=== PATIENT | female | born 1995 | race African-American/Black ===

== ENCOUNTER 2025-09-30 10:06 | Outpatient (AMB) | payer OTHER, SELFPAY ==
--- NOTE | 2025-09-30 09:06 | A.OFFPC_ITS ---
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 Administrator Required: No Accompanied by: Self / Same As Patient Allergies No Known Allergies Allergy (Verified 09/30/25 10:02) Medication List - Last Reconciled 09/30/25 by Minal Santiago MD amlodipine 2.5 mg PO DAILY diclofenac sodium 75 mg PO Q12H PRN norethindrone-e.estradiol-iron 1.5 mg-30 mcg ()/75 mg (7) ( FE .04/25 ()) 1 tab PO DAILY Tobacco use date assessed: 09/30/25 Dental Screening Dental Screen Date: 09/30/25 Did you have a dental visit in the last 12 months?: Yes Did you have a dental problem in the last 6 months where you did not have access to dental care?: No Was dental information given to patient?: Patient has dentist HPI HPI Comments History of Present Illness Details The patient is a 29-year-old female presenting for a physical examination and reestablishing care. Patient is primarily concerned with increased frequency and intensity of headaches and right knee discomfort. Right foot injury: Traumatic event in February; resolved. Cleared by orthopedics, no pain. Right big toe injury: Tubing accident in May; resolved. Cleared by orthopedics, no pain. Right knee discomfort: Ongoing discomfort. Awaiting physical therapy. Headaches: Increased frequency and intensity since August. Bilateral tight sensation, no visual changes. No relief with tylenol. Also notes increased work stress. Hypertension: Managed on amlodipine Health Maintenance due for OBGYN Review of Systems - Gen: NAD - Card: no chest pain - Pulm: no sob - Abd: no abdominal pain -Neurologic: Reports increased frequency and intensity of headaches, denies vision changes. Physical Exam General: NAD Chest: CTABL. Card: normal s1, s2, soft murmur across precordium Abd: SNTND, +BS Extremities: no edema Neuro: AOX3 Assessment and Plan 1. Right knee discomfort - Physical therapy planned. 2. Headaches - CT scan ordered for further investigat ion - monitor bp during these episodes - limited use of fioricet for severe epi sodes 3. Hypertension - Continue amlodipine regimen. Discussion Notes We also reviewed the increased frequency and intensity of the patient's headaches and decided on a CT scan to rule out significant conditions, given the change in headache pattern. Regarding her hypertension, we confirmed the continuation of her current regimen with amlodipine. Follow-up plans were scheduled for four months. Patient Instructions - Attend physical therapy for knee. - Complete the CT scan for headache eval uation. - Continue to take amlodipine as prescri bed. - Follow up with it security administrator. - Return for follow-up in 4 months or so edith if needed. 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 1. Little interest or pleasure in doing things: not at all 2. Feeling down, depressed, or hopeless: not at all 3. Trouble falling or staying asleep, or sleeping too much: not at all 4. Feeling tired or having little energy: not at all 5. Poor appetite or overeating: not at all 6. Feeling bad about yourself - or that you are a failure or have let yourself or your family down: not at all 7. Trouble concentrating on things, such as reading the newspaper or watching television: not at all 8. Moving or speaking so slowly that other people could have noticed. Or the opposite - being so fidgety or restless that you have been moving around a lot more than usual: not at all 9. Thoughts that you would be better off or of hurting yourself in some way: not at all Total score: 0 Depression Screening Interpretation: Negative Depression Screening Done: Yes 89725 - PHQ-9 Billing: Yes Source: Developed by Drs. Saul Lazo, Vangie NelsonJeronimo and colleagues, with an educational blake from [employer]. Thrive Questionnaire Date Thrive assessed: 09/30/25 I am a: Patient What is your living situation today?: I have a steady place to live Within the past 12 months, did the food you bought not last and you didn't have the money to get more?: Never true Within the past 12 months, did you worry whether your food would run out before you got money to buy more?: Never true Do you have trouble paying for medicines?: No Do you have trouble getting transportation to medical appointments?: No Do you have trouble paying your heating and electricity bill?: No Do you have trouble taking care of your child, family member or friend?: No Do you have trouble with day-to-day activities such as bathing, preparing meals, shopping, managing finances, etc.?: No Are you currently unemployed and looking for a job?: No Are you interested in more education?: No Please select the resources that you would like help with: None THRIVE Score: 0 AUDIT C Alcohol Use Questionnaire (AUDIT-C) 1. How often do you have a drink containing alcohol?: Monthly or less 2. How many drinks containing alcohol do you have on a typical day when you are drinking?: 1 or 2 3. How often do you have six or more drinks on one occasion?: Never Total Score: 1 SOLEDAD-7 AMB Questionnaire SOLEDAD-7 Date SOLEDAD - 7 assessed: 09/30/25 Feeling nervous, anxious, or on edge: 0 = Not at all Not being able to stop or control worryin = Not at all Worrying too much about different things: 0 = Not at all Trouble relaxin = Not at all Being so restless that it is hard to sit still: 0 = Not at all Becoming easily annoyed or irritable: 0 = Not at all Feeling afraid as if something awful might happen: 0 = Not at all Total SOLEDAD-7 score (0-4 normal; 5-9 mild; 10-14 moderate; 15-21 severe): 0 Source: Developed by Drs. Saul Lazo, Vangie Nelson, Jeronimo Gillespie and colleagues, with an educational blake from [employer]. Physical exam (Primary Care) Vital Signs: Last Vital Signs Temp 97.9 F 09/30/25 10:00 Pulse 64 09/30/25 10:00 Resp 16 09/30/25 10:00 BP 122/80 09/30/25 10:52 Pulse Ox 96 09/30/25 10:00 Oxygen Delivery Method Room Air 09/30/25 10:00 BMI result Body Mass Index 28.3 Tobacco/Smoking Status: Tobacco use Status Tobacco use date assessed 09/30/25 09/30/25 09:06 Patient Tobacco Use Status Never used Tobacco 09/30/25 10:05 e-Cigarette/Vaping Use Never Used 09/30/25 10:05 PHQ-9: PHQ-9 Score PHQ-9: Total score 0 09/30/25 11:07 Depression Screening Interpretation: Negative Thrive Assessment: Date of Thrive Assessment Date Thrive assessed 09/30/25 09/30/25 11:07 Coding Level of Care Code Est Pt Prev Care 18-39y(61758) Diagnoses Primary hypertension I10 Intractable headache, unspecified chronicity pattern, unspecified headache type R51.9 Headache chronicity pattern: unspecified pattern Headache type: unspecified Routine adult health maintenance Z00.00 Additional Codes PHQ-9 - 68866 - PHQ-9 Billing: Yes ([id number]) Assessment & Plan Assessment & Plan (1) Primary hypertension: Code(s): I10 - Essential (primary) hypertension Category: Medical (2) Intractable headache: Code(s): R51.9 - Headache, unspecified Category: Medical Qualifiers: Headache chronicity pattern: unspecified pattern Headache type: unspecified Qualified Code(s): R51.9 - Headache, unspecified (3) Routine adult health maintenance: Code(s): Z00.00 - Encounter for general adult medical examination without abnormal findings Category: Medical Plan Plan - Physical therapy for right knee. - CT scan for headaches. - Continue amlodipine. - OBGYN follow-up. - Comprehensive labs (CBC, metabolic panel, lipid panel). - Follow-up in 4 months. Orders: Orders TSH reflex Free T4 Today I10 - Essential (primary) hypertension Microalbumin, Random (w Creat) Today G43.909 - Migraine, unspecified, not intractable, without status migrainosus, I10 - Essential (primary) hypertension CT head/brain wo IV con Today R51.9 - Headache, unspecified Complete Blood Count Auto Diff Today I10 - Essential (primary) hypertension Comprehensive Met. Panel Today I10 - Essential (primary) hypertension Lipid Panel Today I10 - Essential (primary) hypertension Referrals REEL FILM INSPECTOR Referral Z01.419 - Encounter for gynecological examination (general) (routine) without abnormal findings Medications: New gjfegggnxq-hvfsdrktgdnst-zkuw 50-325-40 mg 1 cap PO Q6H PRN 12 caps 0RF headache amlodipine 2.5 mg PO DAILY 90 tabs 3RF
[2025-09-30 10:00] VITALS: BP 134/80; PULSE 64; RESP 16; TEMP 36.6; O2SAT 96; BMI 28.3
[2025-09-30 10:52] VITALS: BP 122/80
== END 2025-09-30 10:55 | disposition home or self-care (01) ==
LOC: HO.HMCHD 10:06
PROVIDERS: PCP Internal Medicine; Visit Provider Internal Medicine
DX: Z00.00 Encounter for general adult medical examination without abnormal findings (principal); I10 Essential (primary) hypertension; R51.9 Headache, unspecified

== ENCOUNTER → 2025-09-30 10:06 | Outpatient (BNVA) | payer OTHER, SELFPAY | PROVIDERS: PCP Internal Medicine; Visit Provider Internal Medicine | DX: Z13.31 Encounter for screening for depression (principal); Z13.39 Encounter for screening examination for other mental health and behavioral disorders | CPT/HCPCS: 96127 ==

== ENCOUNTER 2025-09-30 10:58 | Outpatient (REF) | payer OTHER, SELFPAY ==
[2025-09-30 13:09] LABS: MANUAL DIFF FLAG NO
[2025-09-30 13:17] LABS: Hematocrit 43.4 % (37.0-47.0); Hemoglobin 14.2 g/dl (12.0-16.0); Imm Gran Abs Auto 0.01 X10*3/uL (0.00-0.03); Imm Gran Pct Auto 0.1 % (0.0-0.4); Lymphocytes Absolute Auto 2.2 X10*3/uL (1.2-4.9); Mean Corpuscular HGB Conc 32.7 g/dl (31.0-35.0); Mean Corpuscular Hemoglobin 29.6 pg (27.0-33.0); Mean Corpuscular Volume 90.4 fL (80.0-98.0); NRBC Abs Auto 0.000 X10*3/uL (0.0-0.012); NRBC Pct Auto 0.0 /100WBC (0.0-0.2); Platelet Count 333 X10*3/uL (160-400); Red Blood Count 4.80 X10*6/uL (4.20-5.50); White Blood Count 8.0 X10*3/uL (4.8-10.8)
[2025-09-30 13:38] LABS: Alanine Aminotransferase 17 U/L (0-31); Albumin Level 4.7 g/dL (3.5-5.0); Alkaline Phosphatase 55 U/L (39-117); Anion Gap 10 (12-20); Aspartate Amino Transferase 30 U/L (5-31); Blood Urea Nitrogen 11 mg/dL (9-16); Calcium 9.5 mg/dL (8.4-10.2); Carbon Dioxide 28 mmol/L (22-29); Chloride 104 mmol/L (96-108); Cholesterol 173 mg/dL (<200); Estimated Glomerular Filt Rate > 60; HDL Cholesterol 61 mg/dL (>40); Potassium 4.0 mmol/L (3.3-5.1); Sodium 138 mmol/L (135-145); Total Protein 7.1 g/dL (6.5-8.0); Triglycerides 87 mg/dL (<150)
[2025-09-30 13:51] LABS: Microalbum/Creatinine Ratio Ur 9.8 ug/mg cr (<30)
== END 2025-09-30 10:59 | disposition home or self-care (01) ==
LOC: HO.10HDL 10:58
PROVIDERS: Visit Provider Internal Medicine
DX: I10 Essential (primary) hypertension (principal); G43.909 Migraine, unspecified, not intractable, without status migrainosus
CPT/HCPCS: 36415; 80053; 80061; 82043; 82570; 84443; 85025

== ENCOUNTER 2025-10-29 14:22 | Outpatient (REF) | payer OTHER, SELFPAY ==
[2025-10-29 23:43] LABS: CT PCR NOT DETECTED (Not Detect.); NG PCR NOT DETECTED (Not Detect.)
== END 2025-10-29 14:23 | disposition home or self-care (01) ==
LOC: HO.LNP 14:22
PROVIDERS: PCP Internal Medicine; Visit Provider Advanced Practice Midwife
DX: Z01.419 Encounter for gynecological examination (general) (routine) without abnormal findings (principal); Z20.2 Contact with and (suspected) exposure to infections with a predominantly sexual mode of transmission; Z12.39 Encounter for other screening for malignant neoplasm of breast; E66.3 Overweight; Z68.28 Body mass index [BMI] 28.0-28.9, adult
CPT/HCPCS: 87491; 87591

== ENCOUNTER 2025-10-29 14:22 | Outpatient (AMB) | payer OTHER, SELFPAY ==
--- NOTE | 2025-10-29 14:32 | MHC.OFFVIS ---
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 Intake Note: Last pap smear per patient 1-2 years ago [facility] Jewelry Sales Coordinator: Jewelry Sales Coordinator Present (Cathy) Accompanied by: Self / Same As Patient Allergies No Known Allergies Allergy (Verified 10/29/25 14:36) Medication List - Last Reconciled 10/29/25 by Tanisha Jade CNM amlodipine 2.5 mg PO DAILY gfaxfahqgz-htblychzswzyr-pakg 50-325-40 mg 1 cap PO Q6H PRN diclofenac sodium 75 mg PO Q12H PRN norethindrone (contraceptive) (Flor) 0.35 mg PO DAILY 12 months Is last menstrual period known: Yes Last menstrual period: 10/26/25 Post menopausal: No Patient : No HPI Comments Details: Pt presents today for ANNUAL exam, she is new to the 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 Previous care with Dr. Freed She has the following concerns: none She is not currently in a relationship. she agrees to gc/ct screening. she has been dx with HTN and started on anti-hypertensives and also hx migraines, does not describe aura Exercise: was regular until she had injuries and is now in PT Nutrition/calcium: adequate intake Contraception: BCP Last Pap: 2022 , Results: neg cytology, report notes that she does have past hx+ ascus Last mamm[facility]: n/a, [facility] Medical History Routine adult health maintenance Intractable headache Migraines Routine gynecological examination Primary hypertension Family History (Updated 10/29/25 @ 15:18 by Tanisha Jade CNM) Maternal Grandmother Breast cancer Mother Hypertension Father Diabetes Social History Housing: House Patient Tobacco Use Status: Never used Tobacco e-Cigarette/Vaping Use: Never Used service: No Current occupational status: employed 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 Female Reproductive History Menstrual Age of Menarche: 9 Date of last menstrual period: 10/26/25 control method: pills Total pregnancies: 0 History of abnormal pap smear: No Review of Systems Const Reports no additional complaints Eyes Reports no additional complaints ENT Reports no additional complaints Card Reports no additional complaints Resp Reports no additional complaints GI Reports no additional complaints Reports as per HPI Skin/Breast Reports system reviewed and no additional complaints, except as documented Physical Exam Vital Signs: Last Vital Signs BP 134/88 10/29/25 14:36 BMI result Body Mass Index 28.3 Const General: cooperative, healthy appearing and no acute distress Orientation/consciousness: patient oriented x3 HEENT Head: Yes normal to inspection and Yes normocephalic Ears: external ears normal General nose exam: Normal external nose present Neck Neck: Yes normal visual inspection Chest Breast/axilla inspection: normal inspection of the breasts, normal inspection of the axillae and Other (No skin changes, peau d orange, or nipple discharge noted) Breast/axilla palpation: normal palpation of the breasts (bilat fibrocystic breast changes), normal palpation of the axillae and no axillary lymphadenopathy Resp Effort & Inspection: normal respiratory effort and able to speak in complete sentences GI Inspection: No distended Palpation (GI): Soft to palpation, nontender and no masses Percussion: Yes normal to percussion Rectal Exam - Female: No External hemorrhoid(s) present External Female Exam: normal external appearance and normal appearance of the urethra Speculum Exam - Vagina: normal appearance of the vagina and normal vaginal discharge Speculum Exam - Cervix: normal appearance of the cervix (small menses noted, PAP deferred) and normal palpation (neg CMT) Bimanual exam- vagina & uterus: normal bimanual exam, normal palpation (neg CMT), uterine mobility normal and non-tender Bimanual Exam- Adnexa, other: no masses and No adnexal tenderness Skin General skin exam: no rashes or lesions noted Neuro General: patient oriented x3 and moves all extremities Extrem General: Yes full ROM Psych Speech and movement: Normal speech and movement present Affect: normal affect Attitude: cooperative Thought process: Normal thought process present Assessment & Plan Assessment & Plan (1) Well woman exam with routine gynecological exam: Code(s): Z01.419 - Encounter for gynecological examination (general) (routine) without abnormal findings (2) Screening breast examination: Code(s): Z12.39 - Encounter for other screening for malignant neoplasm of breast (3) Encounter for screening examination for sexually transmitted infection: Code(s): Z11.3 - Encounter for screening for infections with a predominantly sexual mode of transmission Plan During the visit, the following areas of concern were addressed: Monitoring of the menstrual cycle Contraception, including options and instructions, risks and benefits. In setting of htn & migraines, will change to progestin only pill Regular exercise Healthy lifestyle STD strategies to avoid exposure Health Maintenance and Screening -Reviewed ASCCP guidelines for Paps and yearly (bi-yearly ) pelvic exam. -Reviewed and encouraged diet and exercise for cardiovascular and bone health -Reviewed breast self-awareness. Importance of yearly mammogram after age 40 (earlier if first-degree relative with breast cancer at a younger age ) Discuss use of 3 times per week weight-bearing exercise, vitamin D3 and servings of dietary calcium daily for bone health. -continue to follow with PCP for general medical care, immunizations. Screening strategies for colon cancer after age 50. Family and personal history of cancer reviewed. Genetic screening - not indicated, info/literature added to pt portal The patient has BMI: 28 The patient is overweight. Approaches towards weight loss are discussed including burning more calories than one takes in by frequent, small meals, portion control, avoiding eating before bedtime, regular exercise with an emphasis on duration rather than intensity, strength training exercise, referral to vocal music instructor or to weight loss management center upon patient request. RTO 1-2 mo to complete PAP when not on menses RTO one year for ANNUAL or sooner faithn Tanisha Jade CNM Note about provider documentation : If you or the patient named in this chart and are reviewing your medical notes, please note that medical documentation is often written with abbreviations and medical terminology, and directed for other providers who may be involved in your care as well. Documentation is critical to record what has happened, what tests were ordered, and so they are interpreted with the resulting diagnoses. These nodes have been made available for patient review but not specifically written for the patient. Important health information is always given to my patients in clinical instructions. Please review your after visit summary and our contact our clinical staff if you have any questions. Orders: Orders CT NG by PCR Vag/Cerv Today Z01.419 - Encounter for gynecological examination (general) (routine) without abnormal findings, Z11.3 - Encounter for screening for infections with a predominantly sexual mode of transmission Medications: New norethindrone (contraceptive) (Flor) 0.35 mg PO DAILY 90 tabs 3RF 12 months Coding Level of Care Code Est Pt Prev Care 18-39y(14173) Diagnoses Well woman exam with routine gynecological exam Z01.419 Screening breast examination Z12.39 Encounter for screening examination for sexually transmitted infection Z11.3
[2025-10-29 14:36] VITALS: BP 134/88; BMI 28.3
== END 2025-10-29 15:06 | disposition home or self-care (01) ==
LOC: HO.HWSM 14:22
PROVIDERS: PCP Internal Medicine; Visit Provider Advanced Practice Midwife
DX: Z01.419 Encounter for gynecological examination (general) (routine) without abnormal findings (principal); Z12.39 Encounter for other screening for malignant neoplasm of breast; Z11.3 Encounter for screening for infections with a predominantly sexual mode of transmission
CPT/HCPCS: 99395; 99459